=== PATIENT | male | born 1995 | race American Indian/Alaskan Native ===

== ENCOUNTER 2020-04-02 10:41 | Emergency (ER) | payer SELFPAY ==
[2020-04-02 10:50] VITALS: BP 101/81
== END 2020-04-02 13:17 | disposition left against medical advice (07) ==
LOC: ED 10:41
DX: Z53.21 Procedure and treatment not carried out due to patient leaving prior to being seen by health care provider (principal)

== ENCOUNTER 2020-05-22 13:10 | Emergency (ER) | payer SELFPAY ==
[2020-05-22 13:32] VITALS: BP 115/72
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
== END 2020-05-22 18:00 | disposition left against medical advice (07) ==
LOC: ED 13:10
DX: R51.9 Headache, unspecified (principal); Z53.21 Procedure and treatment not carried out due to patient leaving prior to being seen by health care provider
CPT/HCPCS: 70450; 70486

== ENCOUNTER 2020-06-27 23:57 | Emergency (ER) | payer SELFPAY ==
--- NOTE | 2020-06-28 00:34 | Emergency Department Report ---
ED Psych HPI - General Chief Complaint: Psych Stated Complaint: SUICIDAL THOUGHTS Time Seen by Provider: 06/28/20 00:28 Source: patient, EMS Mode of arrival: Ambulatory Limitations: No Limitations - History of Present Illness Initial Comments: Patient is a 24-year-old male who presents emergency room with complaints of suicidal ideations. Patient states he is been having thoughts of killing himself for years. Patient states the thoughts are worsening. Patient states now he has a plan to jump in traffic. Patient states he wants to get hit by a truck. Patient states he is having significant life stressors due to a problem with his girlfriend. Patient denies homicidal ideations. Patient denies hallucinations. Patient denies recent travel. Patient denies recent international travel. Patient denies exposure to the novel coronavirus. Patient denies sick contacts. Patient denies fever and chills. Patient denies cough. Patient denies diarrhea. Patient denies coming in contact with anybody with symptoms of the novel coronavirus. MD Complaint: suicidal ideation -: Sudden, year(s) Associated Psychiatric Symptoms: depression, suicidal ideation, racing thoughts History of same: Yes Quality: constant Improves With: none Worsens With: none Context: not taking psychiatric, significant life stressor If Self Harm: admits thoughts of, has plan - Related Data Allergies Allergy/AdvReac Type Severity Reaction Status Date / Time No Known Allergies Allergy Unverified 04/02/20 10:46 ED Review of Systems ROS: Stated complaint: SUICIDAL THOUGHTS Other details as noted in HPI Constitutional: denies: chills, fever Eyes: denies: eye pain, eye discharge, vision change ENT: denies: ear pain, throat pain Respiratory: denies: cough, shortness of breath, wheezing Cardiovascular: denies: chest pain, palpitations Endocrine: no symptoms reported Gastrointestinal: denies: abdominal pain, nausea, diarrhea Genitourinary: denies: urgency, dysuria Musculoskeletal: denies: back pain, joint swelling, arthralgia Skin: denies: rash, lesions Neurological: denies: headache, weakness, paresthesias Psychiatric: as per HPI, depression, suicidal thoughts. denies: anxiety Hematological/Lymphatic: denies: easy bleeding, easy bruising ED Past Medical Hx - Past Medical History Previous Medical History?: Yes Hx Psychiatric Treatment: Yes (schizophrenia) Additional medical history: schizophrenia - Surgical History Past Surgical History?: No - Family History Family history: no significant - Social History Smoking Status: Current Every Day Smoker Substance Use Type: Alcohol, Marijuana ED Physical Exam - General Limitations: No Limitations General appearance: alert, in no apparent distress - Head Head exam: Present: atraumatic, normocephalic - Eye Eye exam: Present: normal appearance - ENT ENT exam: Present: mucous membranes moist - Neck Neck exam: Present: normal inspection - Respiratory Respiratory exam: Present: normal lung sounds bilaterally. Absent: respiratory distress - Cardiovascular Cardiovascular Exam: Present: regular rate, normal rhythm. Absent: systolic murmur, diastolic murmur, rubs, gallop - GI/Abdominal GI/Abdominal exam: Present: soft, normal bowel sounds - Rectal Rectal exam: Present: deferred - Extremities Exam Extremities exam: Present: normal inspection - Back Exam Back exam: Present: normal inspection - Neurological Exam Neurological exam: Present: alert, oriented X3 - Psychiatric Psychiatric exam: Present: depressed, flat affect, suicidal ideation - Skin Skin exam: Present: warm, dry, intact, normal color. Absent: rash ED Course Vital Signs 06/28/20 00:26 Temperature 98.3 F Pulse Rate 90 Respiratory 18 Rate Blood Pressure 120/75 [Left] O2 Sat by Pulse 100 Oximetry - Reevaluation(s) Reevaluation #1: Patient placed on a ER hold. 06/28/20 00:34 Reevaluation #2: Patient is medically cleared. Patient's final disposition will come from our psychiatry team. Patient will remain in the ER as an ER hold until the patient is cleared by the psychiatry team. 06/28/20 02:11 ED Medical Decision Making - Lab Data Result diagrams: 06/28/20 00:31 06/28/20 00:31 - Medical Decision Making Patient is a 24-year-old male that presents emergency room with complaints of suicidal ideations with a plan. Patient's plan was to jump in traffic. Patient had labs done. Patient labs are essentially unremarkable except for elevated blood alcohol and UDS positive for marijuana. Patient is medically cleared. Patient's final disposition will come from our psychiatry team. - Differential Diagnosis Suicidal ideations, drug abuse, intoxication, depression, missed meds Critical care attestation.: If time is entered above; I have spent that time in minutes in the direct care of this critically ill patient, excluding procedure time. ED Disposition Clinical Impression: Suicidal ideations Alcohol intoxication Qualifiers: Complication of substance-induced condition: with unspecified complication Qualified Code(s): F10.929 - Alcohol use, unspecified with intoxication, unspecified Is pt being admited?: No Does the pt Need Aspirin: No Condition: Stable Time of Disposition: 02:13
[2020-06-28 00:59] LABS: Basophils # (Auto) 0.1 K/mm3 (0.0-0.1); Basophils % (Auto) 0.8 % (0.0-1.8); Eosinophils # (Auto) 0.1 K/mm3 (0.0-0.4); Eosinophils % (Auto) 0.6 % (0.0-4.3); Hematocrit 45.3 % (35.5-45.6); Hemoglobin 15.1 gm/dl (11.8-15.2); Lymphocytes # (Auto) 2.6 K/mm3 (1.2-5.4); Lymphocytes % (Auto) 26.6 % (13.4-35.0); Mean Corpuscular HGB Conc 33 % (32-34); Mean Corpuscular Volume 87 fl (84-94); Monocytes # (Auto) 0.3 K/mm3 (0.0-0.8); Monocytes % (Auto) 3.3 % (0.0-7.3); Platelet Count 273 K/mm3 (140-440); Red Blood Count 5.22 M/mm3 (3.65-5.03); Red Cell Distribution Width 14.7 % (13.2-15.2)
[2020-06-28 01:13] LABS: BUN/Creatinine Ratio 14; Blood Urea Nitrogen 13 mg/dL (9-20); Calcium 9.5 mg/dL (8.4-10.2); Hemolysis Index 5
[2020-06-28 01:19] LABS: Amphetamine Screen,Urine PRESUMPTIVE NEGATIVE; Benzodiazepines Screen,Urine PRESUMPTIVE NEGATIVE; Cannabinoid Screen,Urine PRESUMPTIVE POSITIVE; Cocaine Screen,Urine PRESUMPTIVE NEGATIVE; Methadone Screen,Urine PRESUMPTIVE NEGATIVE; Opiate Screen,Urine PRESUMPTIVE NEGATIVE
[2020-06-28 01:20] LABS: Bilirubin,Urine NEG (Negative); Blood,Urine SM (Negative); Color,Urine Straw (Yellow); Mucus,Urine FEW /HPF; Protein,Urine <15 mg/dL mg/dL (Negative); Urobilinogen,Urine < 2.0 mg/dL (<2.0)
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
[2020-06-28] MEDS ORDERED: chlordiazePOXIDE 25 MG CAP PO PRN ×2 (10:10)
[2020-06-28 16:43] LABS: BUN/Creatinine Ratio 20; Blood Urea Nitrogen 16 mg/dL (9-20); Hemolysis Index 12
[2020-06-28] MEDS: SERTRALINE 25 MG TAB PO SCH (17:45)
[2020-06-28] MEDS: DIVALPROEX DR 125 MG TAB PO SCH ×2 (17:46→21:54)
[2020-06-28] MEDS ORDERED: traZODone 50 MG TAB PO SCH (22:00)
--- NOTE | 2020-06-29 07:10 | Progress Note ---
Subjective - Reason for Consult Consult date: 06/29/20 Reason for consult: MHE Requesting physician: DONNA MONTOYA III - Chief Complaint Chief complaint: Psych HPI Patient states this Morning that when he first came in, he was feeling suicidal but not anymore. He reports speaking with his family on the phone and he has worked out the issues he had with them. REVIEW OF SYSTEMS Constitutional: Negative for weight loss ENT: Negative for stridor Respiratory: Negative for cough or hemoptysis All other systems reviewed and are negative MENTAL STATUS EXAMINATION General Appearance and Behavior: Age appropriate, good hygiene, wearing appropriate clothes, good eye contact, cooperative polite with questioning. Cooperation: Participating/engaged Psychomotor Behavior: unremarkable and within normal limits Mood: Good Affect and affective range: congruent with mood Thought Process: Fluent/Logical, Thought Content: Within reality, Speech: Normal volume, Regular rate and rhythm, Intellectual Functioning: Average Suicidal Ideation: Denies SI Homicidal Ideation: Denies HI Impulse Control: Unimpaired Insight and Judgment: Normal insight and judgment, Memory: Normal, Attention: Normal, Orientation: Alert, oriented, Assessment and Plan (1) Major Depressive Disorder, Severe w/o Psychotic Features Current Visit: Yes Status: Acute (2)Alcohol Use Disorder Current Visit: Yes Status: Acute (2) Substance Induced Mood Disorder TREATMENT PLAN 1013 rescinded Medical: Per primary Disposition: Do not recommend acute inpatient treatment at this time Will reassess the patient's mental status Wednesday if he hasn't been placed. Thank you for this consult. Mental Status Exam - Vital signs Last Vital Signs Temp 98.2 F 06/29/20 01:35 Pulse 70 06/29/20 01:35 Resp 18 06/29/20 01:35 BP 120/67 06/29/20 01:35 Pulse Ox 96 06/29/20 01:35
[2020-06-29 10:05] VITALS: BP 122/79
[2020-06-29] MEDS: DIVALPROEX DR 125 MG TAB PO SCH (11:05)
[2020-06-29] MEDS: SERTRALINE 25 MG TAB PO SCH (11:05)
== END 2020-06-29 12:38 | disposition home or self-care (01) ==
LOC: EEVIPCON 23:57 → ED 23:57
DX: F10.129 Alcohol abuse with intoxication, unspecified (principal); F25.0 Schizoaffective disorder, bipolar type; F17.200 Nicotine dependence, unspecified, uncomplicated; F12.10 Cannabis abuse, uncomplicated
CPT/HCPCS: 36415; 80048; 80307; 80320; 81001; 85025; G0480

== ENCOUNTER 2021-03-07 23:55 | Emergency (ER) | payer SELFPAY ==
[2021-03-08 00:51] VITALS: BP 166/68
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
[2021-03-08] MEDS ORDERED: IBUPROFEN 600 MG TAB PO ONE (01:43)
[2021-03-08] MEDS ORDERED: ACETAMINOPHEN 325 MG TAB PO ONE (01:43)
== END 2021-03-08 01:45 | disposition home or self-care (01) ==
LOC: ED 23:55
DX: S00.03XA Contusion of scalp, initial encounter (principal); F20.9 Schizophrenia, unspecified; F17.200 Nicotine dependence, unspecified, uncomplicated; F12.10 Cannabis abuse, uncomplicated; Y08.89XA Assault by other specified means, initial encounter; Y93.89 Activity, other specified; Y92.89 Other specified places as the place of occurrence of the external cause; Y99.8 Other external cause status
CPT/HCPCS: 99282